=== PATIENT | male | born 1965 | race Caucasian/White ===

== ENCOUNTER 2022-02-03 10:39 | Emergency (ER) | payer BC | END 2022-02-03 13:07 | disposition home or self-care (01) | LOC: NAV ERS 10:39 | DX: T63.2X1A Toxic effect of venom of scorpion, accidental (unintentional), initial encounter (principal); E11.9 Type 2 diabetes mellitus without complications; I10 Essential (primary) hypertension; I25.10 Atherosclerotic heart disease of native coronary artery without angina pectoris; E78.5 Hyperlipidemia, unspecified | CPT/HCPCS: 99282 ==